=== PATIENT | female | born 1970 | race African-American/Black ===

== ENCOUNTER 2018-10-09 09:47 | Day surgery (SDC) | payer OTHER ==
[2018-10-05 12:27] VITALS: BMI 21.7
[2018-10-09 10:03] LABS: #Eosinphils 0.1 thou/uL (0.0-0.7); #Lymphocytes 0.9 thou/uL (1.20-3.40); #Monocytes 0.5 thou/uL (0.11-0.59); #Neutrophils 4.8 thou/uL (1.40-6.50); %Basophils 0.5 % (0.0-1.0); %Eosinophils 0.8 % (0.0-10.0); %Lymphocytes 14.5 % (21.0-51.0); %Monocytes 8.3 % (0.0-10.0); %Neutrophils 75.9 % (42.0-75.0); Hemoglobin 12.6 g/dL (12.0-16.0); Mean Corpuscular HGB CONC 33.1 g/dL (32.0-36.0); Mean Corpuscular Hemoglobin 31.6 pg (27.0-31.0); Mean Corpuscular Volume 95.4 fL (78.0-98.0); Mean Platelet Volume 6.6 fL (7.4-10.4); Platelet Count 286 thou/uL (130-400); RBC Distribution Width 18.3 % (11.5-14.5); Red Blood Cell (RBC) Count 3.99 mill/uL (4.20-5.40); White Blood Cell (WBC) Count 6.3 thou/uL (4.8-10.8)
[2018-10-09 10:09] LABS: INR-International Normal Ratio 1.2; PTT 33.7 SEC (22.9-36.1); Prothrombin Time 15.2 SEC (12.0-14.7)
[2018-10-09] MEDS ORDERED: Sodium Bicarbonate 2.5 MEQ/5 ML VIAL ONE (10:44)
--- NOTE | 2018-10-09 11:59 | ULT ---
Sonographic guided paracentesis HISTORY: Recurrent ascites. FINDINGS: After explaining the procedure and answering all questions, sonographic survey shows large amount of free fluid throughout the abdomen. Sterile technique, buffered local anesthesia, sonographic guidance, and an anterior right lower quadrant approach were used carefully advance a 19- gauge Yueh needle and catheter into the free fluid. The catheter was left to drain a total of 4.0 L clear greenish-yellow liquid. Drainage was limited to 4 L because patient has not had routine drainag es. Catheter was removed. Small amount of free fluid remaining. Patient tolerated procedure well and was dismissed in good condition. IMPRESSION: Technically successful sonographic guided paracentesis. Limited to 4 L fluid.
[2018-10-09 12:38] VITALS: BP 133/90; TEMP 98.4
== END 2018-10-09 11:45 | disposition home or self-care (01) ==
LOC: ULT 09:47
PROVIDERS: ATTEND Internal Medicine
PROC: BW40ZZZ Ultrasonography of Abdomen (ICD-10-PCS; principal; 2018-10-09)
PROC: 0W9G3ZZ Drainage of Peritoneal Cavity, Percutaneous Approach (ICD-10-PCS; principal; 2018-10-09)
DX: K70.31 Alcoholic cirrhosis of liver with ascites (principal); Z91.041 Radiographic dye allergy status
CPT/HCPCS: 36415; 49083; 85025; 85610; 85730